=== PATIENT | female | born 1935 | race Caucasian/White ===

== ENCOUNTER 2018-06-10 12:24 | Inpatient (IN) | payer MEDICARE, OTHER ==
[~2018-06-10] VITALS: Ht 175.3 cm; Wt 47.6 kg
[2018-06-10] VITALS (9 sets, daily range): BP systolic 112–146; BP diastolic 45–87
[~2018-06-10 12:24] MED LIST: ASPI81TA31 PO; CELE200C PO; DOCU-270 PO; DULO60CA45 PO; ENAL10TA PO; ERGO500040 PO; FOLI1TAB16 PO; IBAN150T8 PO; METF-440 PO; METH2.5T PO; METO-356 PO; OXYB5TAB11 PO; PANT40TA2 PO; TRAM50TA2 PO
[2018-06-10] MEDS ORDERED: METHOTREXATE 2.5 MG (12:36)
[2018-06-10] MEDS ORDERED: ALENDRONATE 70 MG (12:36)
[2018-06-10] MEDS ORDERED: [UNRECOGNIZED DRUG - OTHER] (12:36)
[2018-06-10] MEDS ORDERED: MECLIZINE 25 MG (12:36)
[2018-06-10] MEDS ORDERED: CITALOPRAM 10 MG (12:36)
[2018-06-10] MEDS ORDERED: FUROSEMIDE TAB 20MG (12:36)
[2018-06-10] MEDS ORDERED: PRADAXA 150 MG (12:36)
[2018-06-10] MEDS ORDERED: AMITIZA 24 MCG (12:36)
[2018-06-10] MEDS ORDERED: [UNRECOGNIZED DRUG - OTHER] (12:36)
[2018-06-10] MEDS ORDERED: DONEPEZIL 5 MG (12:36)
[2018-06-10] MEDS ORDERED: MYRBETRIQ 25 MG (12:36)
[2018-06-10] MEDS ORDERED: METFORMIN TAB 500MG (12:36)
[2018-06-10] MEDS ORDERED: VOLTAREN GEL 1% (12:36)
[2018-06-10] MEDS ORDERED: ENALAPRIL 10 MG (12:36)
[2018-06-10] MEDS ORDERED: METOPROL SUC (12:36)
[2018-06-10] MEDS ORDERED: ROSUVASTATIN 20 MG (12:36)
[2018-06-10] MEDS ORDERED: LOSARTAN (12:37)
[2018-06-10] MEDS ORDERED: HCT (12:37)
[2018-06-10 12:45] LABS: BASOPHILS % (AUTO) 0.3 % (0.0-2.0); EOSINOPHILS # (AUTO) 0.1 K/uL (0.0-0.7); EOSINOPHILS % (AUTO) 0.4 % (0.0-7.0); HEMATOCRIT 47.6 % (31.2-41.9); LYMPHOCYTES # (AUTO) 1.2 K/uL (20.0-40.0); LYMPHOCYTES % (AUTO) 8.9 % (20.5-51.5); MEAN CORPUSCULAR HEMOGLOBIN 30.8 uug (24.7-32.8); MEAN CORPUSCULAR HGB CONC 34 g/dL (32.3-35.6); MEAN CORPUSCULAR VOLUME 91.8 fL (75.5-95.3); MONOCYTES # (AUTO) 1.1 K/uL (2.0-10.0); MONOCYTES % (AUTO) 8.1 % (0.0-11.0); NEUTROPHILS # (AUTO) 11.5 K/uL (1.8-8.9); NEUTROPHILS % (AUTO) 82.3 % (38.5-71.5); PLATELET COUNT (AUTO) 653 K/uL (179-408); RED BLOOD CELL COUNT(AUTO) 5.19 MIL/uL (3.63-4.92); WHITE BLOOD COUNT (AUTO) 13.9 K/uL (3.8-11.8)
[2018-06-10 12:58] LABS: CARBON DIOXIDE 24 mmol/L (21-32); CHLORIDE 104 mmol/L (98-107); CREATININE 0.7 mg/dL (0.6-1.3); GLUCOSE 229 mg/dL (74-106); UREA NITROGEN, BLOOD 18 mg/dL (7-18)
[2018-06-10] MEDS ORDERED: PRED2.5T PO (13:02)
[2018-06-10] MEDS ORDERED: LUBI24CA5 PO (13:02)
[2018-06-10] MEDS ORDERED: PRODAXA (13:02)
[2018-06-10] MEDS ORDERED: BLOO-140 IN (13:02)
[2018-06-10] MEDS ORDERED: FOLI1TAB16 PO (13:02)
[2018-06-10] MEDS ORDERED: ERGO2000 PO (13:02)
[2018-06-10] MEDS ORDERED: METF-440 PO (13:02)
[2018-06-10] MEDS ORDERED: DULO20CA PO (13:02)
[2018-06-10] MEDS ORDERED: DONE5TAB34 PO (13:02)
[2018-06-10] MEDS ORDERED: ROSU20TA PO (13:02)
[2018-06-10] MEDS ORDERED: MIRA25TA PO (13:02)
[2018-06-10] MEDS ORDERED: CITA10TA9 PO (13:02)
[2018-06-10 13:12] LABS: BILIRUBIN,DIRECT 0.3 mg/dL (0.0-0.2); BILIRUBIN,TOTAL 1.2 mg/dL (0.2-1.0); TOTAL PROTEIN, SERUM 6.6 g/dL (6.4-8.2)
[2018-06-10] MEDS ORDERED: MORPHINE SULFATE 4 MG/1 ML DISP.SYRIN IV ONE (13:30)
[2018-06-10] MEDS ORDERED: IV NORMAL SALINE 500 ML BAG IV ONE (13:30)
[2018-06-10] MEDS ORDERED: MORPHINE SULFATE 4 MG/1 ML DISP.SYRIN ONE (13:31)
[2018-06-10 13:50] LABS: *BILIRUBIN,URIN 1+ (NEGATIVE); *BLOOD, URINE Trace-intact (NEGATIVE); *CLARITY,URINE CLEAR (CLEAR); *COLOR,URINE YELLOW (YELLOW); *KETONES,URINE 1+ (NEGATIVE); *PROTEIN,URINE 2+ (NEGATIVE); LEUKOCYTE ESTERASE ,URINE NEGATIVE (NEGATIVE); NITRITE, URINE NEGATIVE (NEGATIVE); PH,URINE 5.5 (5.0-8.0); UGLUCOSE NEGATIVE (NEGATIVE)
[2018-06-10 13:56] LABS: BACTERIA,URINE FEW /HPF (NONE SEEN); RBC,URINE 0-3 /HPF (0-3); SQUAMOUS EPITHELIAL CELL,UR FEW /HPF (NONE SEEN); WBC,URINE 0-3 /HPF (0-3)
[2018-06-10 13:57] LABS: URINE AMORPHOUS URATE FEW /HPF
--- NOTE | 2018-06-10 13:57 | NUR ---
left a message for dr. rose/meera, and doctor giles for consult
--- NOTE | 2018-06-10 14:41 | NUR ---
SBAR report received from Chen SANCHEZ
--- NOTE | 2018-06-10 14:45 | NUR ---
transfered pt to ccu stable condition.
--- NOTE | 2018-06-10 15:00 | NUR ---
83 yr old female admitted to CCU#3 accompanied by iqra CHONG. with admitting diagnosis of pneumothorax and hemothorax left slung post mechanical fall, patient does not remember any syncopal episode. Addendum: 06/10/18 at 1538 by CATHY MARRERO RN Amended: Links added. Addendum: 06/10/18 at 1539 by CATHY MARRERO RN Amended: Links added. Addendum: 06/10/18 at 1540 by CATHY RUELO RN Amended: Links added.
[2018-06-10] MEDS ORDERED: MORPHINE SULFATE 2 MG/1 ML DISP.SYRIN IV PRN (15:30)
--- NOTE | 2018-06-10 15:39 | NUR ---
Seen and examined by Dr. Chavis. orders received. Addendum: 06/10/18 at 1539 by CATHY MARRERO RN Amended: Links added. Addendum: 06/10/18 at 1540 by CATHY MARRERO RN Amended: Links added.
--- NOTE | 2018-06-10 15:40 | NUR ---
call to SOO Khan for admission orders. Addendum: 06/10/18 at 1540 by CATHY MARRERO RN Amended: Links added.
[2018-06-10] MEDS ORDERED: MAGNESIUM HYDROXIDE 30 ML LIQUID UDC PO PRN (16:15)
[2018-06-10] MEDS ORDERED: ZOLPIDEM 5 MG TABLET PO PRN (16:15)
[2018-06-10] MEDS ORDERED: Z GUARD REMEDY PASTE 57 GM TUBE TOP PRN (16:15)
[2018-06-10] MEDS ORDERED: ONDANSETRON 4 MG/2 ML VIAL IV PRN (16:15)
[2018-06-10] MEDS ORDERED: DEXTROSE 50% 50 ML DISP.SYRIN IV PRN (16:30)
[2018-06-10] MEDS: IV NS 1000 ML 1,000 ML IV PRN (16:35)
[2018-06-10] MEDS: LIDOCAINE 5% PATCH TD SCH (16:36)
[2018-06-10] MEDS: BLOOD SUGAR DIAGNOSTIC 1 EACH STRIP VI SCH ×2 (16:55→20:42)
--- NOTE | 2018-06-10 16:58 | NUR ---
echocardiogram done at the bedside. IV fluid NS started at 75ml/hr via right arm IV site. lidocaine patch applied left side back. accucheck done bs 98, no insulin coverage needed. family in and out of room to visit Addendum: 06/10/18 at 1658 by CATHY MARRERO RN Amended: Links added. Addendum: 06/10/18 at 1722 by CATHY MARRERO RN Amended: Links added.
[2018-06-10] MEDS: CEFTRIAXONE 1 G in IV DEXTROSE 5% 50 ML IV SCH (17:01)
[2018-06-10] MEDS: MORPHINE SULFATE 4 MG/1 ML DISP.SYRIN IV PRN (17:16)
--- NOTE | 2018-06-10 17:22 | NUR ---
medicated for left letaral chest pain radiating to the back. unable to scale/ Addendum: 06/10/18 at 1722 by CATHY MARRERO RN Amended: Links added.
[2018-06-10] MEDS: ALBUTEROL SULFATE 2.5 MG/3 ML NEBU NEB SCH ×2 (19:35→23:22)
--- NOTE | 2018-06-10 20:00 | NUR ---
RECEIVED PT VERBALLY RESPONSIVE, FOLLOWS TO COMMAND BUT FORGETFULL ACCDG TO FAMILY, SPEAKS THAI, UNDERSTAND MINIMAL KINYARWANDA. ON O2 @ 100% NRM W/ O2 SAT OF 100%. ON IVF NS @ 75CC/HR ON RFA, NO SIGNS OF INFILTRATION. C/O PAIN ON L CHEST, BUT REFUSED MED. FOR PAIN THIS TIME. REPOSITIONED W/ HOB ELEVATED. C-SCOPE SR. BP STABLE.
[2018-06-10] MEDS: ATORVASTATIN 20 MG TABLET PO SCH (20:43)
--- NOTE | 2018-06-10 22:00 | NUR ---
HS CARE DONE. REPOSITIONED W/ HOB ELEVATED. NOT IN ANY RESP. DISTRESS.
[2018-06-11] VITALS (23 sets, daily range): BP systolic 108–141; BP diastolic 48–78
--- NOTE | 2018-06-11 | NUR ---
V/S STABLE. O2 SAT 100% ON 100% NRM.
[2018-06-11] MEDS: ALBUTEROL SULFATE 2.5 MG/3 ML NEBU NEB SCH ×6 (03:22→23:21)
[2018-06-11 04:59] LABS: BASOPHILS % (AUTO) 0.5 % (0.0-2.0); EOSINOPHILS # (AUTO) 0.2 K/uL (0.0-0.7); EOSINOPHILS % (AUTO) 1.9 % (0.0-7.0); HEMATOCRIT 41.9 % (31.2-41.9); HEMOGLOBIN 14.2 g/dL (10.9-14.3); LYMPHOCYTES # (AUTO) 1.7 K/uL (20.0-40.0); LYMPHOCYTES % (AUTO) 17.8 % (20.5-51.5); MEAN CORPUSCULAR HEMOGLOBIN 30.9 uug (24.7-32.8); MEAN CORPUSCULAR HGB CONC 34 g/dL (32.3-35.6); MEAN CORPUSCULAR VOLUME 91.2 fL (75.5-95.3); MONOCYTES # (AUTO) 1.1 K/uL (2.0-10.0); NEUTROPHILS # (AUTO) 6.7 K/uL (1.8-8.9); NEUTROPHILS % (AUTO) 68.8 % (38.5-71.5); PLATELET COUNT (AUTO) 527 K/uL (179-408); WHITE BLOOD COUNT (AUTO) 9.8 K/uL (3.8-11.8)
[2018-06-11 05:08] LABS: CARBON DIOXIDE 26 mmol/L (21-32); CHLORIDE 107 mmol/L (98-107); CHOLESTEROL 83 mg/dL (<200); CREATININE 0.8 mg/dL (0.6-1.3); GLUCOSE 104 mg/dL (74-106); HDL CHOLESTEROL 55 mg/dL (40-60); MAGNESIUM 1.5 mg/dL (1.8-2.4); PHOSPHOROUS 2.8 mg/dL (2.5-4.9); POTASSIUM 4.4 mmol/L (3.5-5.1); TRIGLYCERIDES 33 MG/DL (30-150); UREA NITROGEN, BLOOD 17 mg/dL (7-18)
--- NOTE | 2018-06-11 06:00 | NUR ---
REFUSED AM CARE C/O PAIN ON L CHEST
[2018-06-11] MEDS: MORPHINE SULFATE 4 MG/1 ML DISP.SYRIN IV PRN ×2 (06:33→18:48)
--- NOTE | 2018-06-11 06:33 | NUR ---
MEDICATED W/ MORPHINE 2MG IVP FOR L CHEST PAIN. BP STABLE, O2 SAT 100% ON 100 % NRM.
[2018-06-11] MEDS: IV NS 1000 ML 1,000 ML IV PRN (06:38)
[2018-06-11] MEDS: BLOOD SUGAR DIAGNOSTIC 1 EACH STRIP VI SCH ×4 (08:00→20:20)
[2018-06-11] MEDS: KETOROLAC TROMETHAMINE 15 MG INJ IVP PRN (08:04)
[2018-06-11] MEDS: CHOLECALCIFEROL 1,000 UNIT TABLET PO SCH (08:15)
[2018-06-11] MEDS: DULOXETINE 20 MG CAPSULE.DR PO SCH (08:16)
[2018-06-11] MEDS: CITALOPRAM 10 MG TABLET PO SCH (08:16)
[2018-06-11] MEDS: DONEPEZIL 5 MG TABLET PO SCH (08:16)
[2018-06-11] MEDS: FOLIC ACID 1 MG TABLET PO SCH (08:16)
[2018-06-11] MEDS: predniSONE 5 MG TABLET PO SCH (08:16)
[2018-06-11] MEDS ORDERED: predniSONE 2.5 MG TABLET PO SCH (09:00)
[2018-06-11] MEDS: LIDOCAINE 5% PATCH TD SCH (09:05)
--- NOTE | 2018-06-11 09:20 | NUR ---
Pulmonary services in the unit to see and examine pt. full report given orders received. see order hx.
[2018-06-11] MEDS: MAGNESIUM SULFATE/D5W 100 ML IV SCH ×2 (10:01→11:34)
--- NOTE | 2018-06-11 11:45 | NUR ---
Attending Reed Hernandez in the unit to see and examine pt. report given.
[2018-06-11] MEDS: INSULIN REGULAR, HUMAN 300 UNIT/3 ML VIAL SQ PRN ×2 (11:47→18:50)
--- NOTE | 2018-06-11 15:30 | NUR ---
Cardiology services Dr. Gauthier in the unit to see and examine pt. report given, orders received see, see order hx.
[2018-06-11] MEDS ORDERED: IV NORMAL SALINE 250 ML IV ONE (16:51)
[2018-06-11] MEDS ORDERED: NORMAL SALINE FLUSH 10 ML DISP.SYRIN ONE ×2 (16:51→16:52)
[2018-06-11] MEDS ORDERED: IOHEXOL 350 100 ML INFUS..BTL ONE (16:51)
[2018-06-11] MEDS ORDERED: CELLULOSE,OXIDIZED 2x3 MC ONE (16:51)
[2018-06-11] MEDS: CEFTRIAXONE 1 G in IV DEXTROSE 5% 50 ML IV SCH (18:43)
--- NOTE | 2018-06-11 20:00 | NUR ---
RECEIVED PT. CONFUSED & DISORIENTED SON @ BEDSIDE, DENIES PAIN @ THIS TIME. ON O2 @ 4LNC W/ O2 SAT OF 96%. REPOSITIONED IN BED W/ HOB ELEVATED. IVF NS @ 75 CC/HR ON RFA., NO SIGNS OF INFILTRATION. NOT IN ANY RESP. DISTRESS.
[2018-06-11] MEDS: ATORVASTATIN 20 MG TABLET PO SCH (20:20)
--- NOTE | 2018-06-11 22:00 | NUR ---
HS CARE DONE. REPOSITIONED W/ HOB ELEVATED. SON @ BEDSIDE. PT. REMAINS CONFUSED & DISORIENTED.
[2018-06-12] VITALS (15 sets, daily range): BP systolic 101–139; BP diastolic 57–79
--- NOTE | 2018-06-12 | NUR ---
AFEBRILE. BP STABLE. REMAINS AWAKE, CONFUSED & DISORIENTED.
[2018-06-12] MEDS: IV NS 1000 ML 1,000 ML IV PRN ×2 (00:57→22:45)
[2018-06-12] MEDS: ACETAMINOPHEN 325 MG TABLET PO PRN ×2 (03:17→22:44)
--- NOTE | 2018-06-12 03:17 | NUR ---
MEDICATED W/ TYLENOL 650 MG PO FOR DISCOMFORTS. PARTIAL AM CARE AFTER USING THE BEDPAN.
[2018-06-12] MEDS: ALBUTEROL SULFATE 2.5 MG/3 ML NEBU NEB SCH ×6 (03:43→22:30)
--- NOTE | 2018-06-12 04:30 | NUR ---
SLEEPING @ THIS TIME, PLACED ON O2 @ 6L MASK.
[2018-06-12 06:43] LABS: BASOPHILS % (AUTO) 0.6 % (0.0-2.0); EOSINOPHILS # (AUTO) 0.2 K/uL (0.0-0.7); EOSINOPHILS % (AUTO) 2.1 % (0.0-7.0); HEMATOCRIT 40.4 % (31.2-41.9); HEMOGLOBIN 13.9 g/dL (10.9-14.3); LYMPHOCYTES # (AUTO) 1.2 K/uL (20.0-40.0); LYMPHOCYTES % (AUTO) 13.6 % (20.5-51.5); MEAN CORPUSCULAR HEMOGLOBIN 31.7 uug (24.7-32.8); MEAN CORPUSCULAR HGB CONC 34 g/dL (32.3-35.6); MEAN CORPUSCULAR VOLUME 92.2 fL (75.5-95.3); MONOCYTES # (AUTO) 0.7 K/uL (2.0-10.0); MONOCYTES % (AUTO) 8.3 % (0.0-11.0); NEUTROPHILS # (AUTO) 6.6 K/uL (1.8-8.9); NEUTROPHILS % (AUTO) 75.4 % (38.5-71.5); PLATELET COUNT (AUTO) 522 K/uL (179-408); RED BLOOD CELL COUNT(AUTO) 4.38 MIL/uL (3.63-4.92); WHITE BLOOD COUNT (AUTO) 8.8 K/uL (3.8-11.8)
[2018-06-12 07:00] LABS: CARBON DIOXIDE 25 mmol/L (21-32); CHLORIDE 109 mmol/L (98-107); CREATININE 0.6 mg/dL (0.6-1.3); GLUCOSE 130 mg/dL (74-106); MAGNESIUM 1.9 mg/dL (1.8-2.4); PHOSPHOROUS 2.2 mg/dL (2.5-4.9); POTASSIUM 4.4 mmol/L (3.5-5.1); UREA NITROGEN, BLOOD 16 mg/dL (7-18)
--- NOTE | 2018-06-12 07:23 | NUR ---
Upon receiving assessment patient noted, to be restless agitated combative attempting to get out of bed unsupervised. 1:1 sitter at bedside, but pt. turning really restless and as per report pt. only able to sleep a couple of hours.
[2018-06-12] MEDS: BLOOD SUGAR DIAGNOSTIC 1 EACH STRIP VI SCH ×4 (07:53→21:00)
[2018-06-12] MEDS: INSULIN REGULAR, HUMAN 300 UNIT/3 ML VIAL SQ PRN ×3 (07:56→16:44)
[2018-06-12] MEDS: predniSONE 5 MG TABLET PO SCH (08:07)
[2018-06-12] MEDS: FOLIC ACID 1 MG TABLET PO SCH (08:07)
[2018-06-12] MEDS: DULOXETINE 20 MG CAPSULE.DR PO SCH (08:07)
[2018-06-12] MEDS: LIDOCAINE 5% PATCH TD SCH (08:07)
[2018-06-12] MEDS: DONEPEZIL 5 MG TABLET PO SCH (08:07)
[2018-06-12] MEDS: CITALOPRAM 10 MG TABLET PO SCH (08:08)
[2018-06-12] MEDS: CHOLECALCIFEROL 1,000 UNIT TABLET PO SCH (08:09)
--- NOTE | 2018-06-12 08:30 | NUR ---
Patient remains restless agitated, pt's son called and now at bedside.
--- NOTE | 2018-06-12 09:20 | NUR ---
Farm Planner Dr. Chavis in the unit to examine patient, full report given.
--- NOTE | 2018-06-12 10:15 | NUR ---
As requested per son Jarred who remains at bedside patient taken out for a short walk. Patient did not tolerate activity, turning diaphoretic, cold clammy and saturation drop to the mid-70's. Attending N.P. notified. Orders received and carried.
[2018-06-12] MEDS ORDERED: QUETIAPINE FUMARATE 25 MG TABLET PO PRN (11:00)
--- NOTE | 2018-06-12 12:00 | NUR ---
telephone report given to Wilner homer and patient taken to room 211 down graded to ICU
[2018-06-12] MEDS: MORPHINE SULFATE 4 MG/1 ML DISP.SYRIN IV PRN (13:38)
--- NOTE | 2018-06-12 13:41 | NUR ---
The patient refused the chest and mediastinum ultrasound. LAURA Eden noted.
[2018-06-12] MEDS ORDERED: NEUTRA PHOS PACKET PO ONE (15:15)
[2018-06-12] MEDS: CEFTRIAXONE 1 G in IV DEXTROSE 5% 50 ML IV SCH (16:41)
[2018-06-12] MEDS: KETOROLAC TROMETHAMINE 15 MG INJ IVP PRN (17:38)
--- NOTE | 2018-06-12 19:30 | NUR ---
NOTED PT TO BE A/A/ O TIMES 2.FAMILY AT BS NO DISTRESS NOTED,
[2018-06-12] MEDS ORDERED: QUETIAPINE FUMARATE 25 MG TABLET PO SCH (21:00)
[2018-06-12] MEDS: ATORVASTATIN 20 MG TABLET PO SCH (21:17)
[2018-06-13] VITALS: BP 122/66
[2018-06-13] MEDS: KETOROLAC TROMETHAMINE 15 MG INJ IVP PRN ×2 (00:26→14:28)
[2018-06-13] MEDS: ALBUTEROL SULFATE 2.5 MG/3 ML NEBU NEB SCH ×6 (03:12→23:22)
[2018-06-13 04:00] VITALS: BP 125/66
[2018-06-13 06:33] LABS: CARBON DIOXIDE 27 mmol/L (21-32); CHLORIDE 112 mmol/L (98-107); CREATININE 0.7 mg/dL (0.6-1.3); GLUCOSE 117 mg/dL (74-106); MAGNESIUM 1.8 mg/dL (1.8-2.4); PHOSPHOROUS 2.9 mg/dL (2.5-4.9); POTASSIUM 5.1 mmol/L (3.5-5.1); UREA NITROGEN, BLOOD 16 mg/dL (7-18)
--- NOTE | 2018-06-13 07:00 | NUR ---
HAD UNEVENTFUL NIGHT.SLEPT MOST OF THE NIGHT
[2018-06-13 07:36] LABS: BASOPHILS # (AUTO) 0.1 K/uL (0.0-8.0); EOSINOPHILS # (AUTO) 0.3 K/uL (0.0-0.7); EOSINOPHILS % (AUTO) 3.3 % (0.0-7.0); HEMATOCRIT 39.2 % (31.2-41.9); HEMOGLOBIN 13.4 g/dL (10.9-14.3); LYMPHOCYTES # (AUTO) 2.5 K/uL (20.0-40.0); LYMPHOCYTES % (AUTO) 32.3 % (20.5-51.5); MEAN CORPUSCULAR HEMOGLOBIN 31.5 uug (24.7-32.8); MEAN CORPUSCULAR HGB CONC 34 g/dL (32.3-35.6); MEAN CORPUSCULAR VOLUME 92.2 fL (75.5-95.3); MONOCYTES # (AUTO) 0.7 K/uL (2.0-10.0); MONOCYTES % (AUTO) 8.6 % (0.0-11.0); NEUTROPHILS # (AUTO) 4.3 K/uL (1.8-8.9); NEUTROPHILS % (AUTO) 54.8 % (38.5-71.5); PLATELET COUNT (AUTO) 506 K/uL (179-408); RED BLOOD CELL COUNT(AUTO) 4.25 MIL/uL (3.63-4.92); WHITE BLOOD COUNT (AUTO) 7.8 K/uL (3.8-11.8)
[2018-06-13] MEDS: BLOOD SUGAR DIAGNOSTIC 1 EACH STRIP VI SCH ×4 (07:39→20:31)
[2018-06-13 08:00] VITALS: BP 138/77
--- NOTE | 2018-06-13 08:00 | NUR ---
Plan of care re: fall precaution, pain management, keep o2 sat above 90's. Applied pillow on left side to see it pt's pain will decrease (left rib fx). 1:1 sitter at bedside for safety. Call light is within reach. Stopped IVF secondary to pt sounds congested will notify TRACK BROOM OPERATOR.
[2018-06-13] MEDS: MORPHINE SULFATE 4 MG/1 ML DISP.SYRIN IV PRN (08:33)
[2018-06-13] MEDS: CHOLECALCIFEROL 1,000 UNIT TABLET PO SCH (08:34)
[2018-06-13] MEDS: DULOXETINE 20 MG CAPSULE.DR PO SCH (08:34)
[2018-06-13] MEDS: predniSONE 5 MG TABLET PO SCH (08:34)
[2018-06-13] MEDS: LIDOCAINE 5% PATCH TD SCH (08:34)
[2018-06-13] MEDS: CITALOPRAM 10 MG TABLET PO SCH (08:34)
[2018-06-13] MEDS: DONEPEZIL 5 MG TABLET PO SCH (08:34)
[2018-06-13] MEDS: FOLIC ACID 1 MG TABLET PO SCH (08:34)
[2018-06-13] MEDS ORDERED: FUROSEMIDE 20 MG/2 ML VIAL IV ONE ×2 (09:30→17:00)
[2018-06-13] MEDS: INSULIN REGULAR, HUMAN 300 UNIT/3 ML VIAL SQ PRN ×2 (11:56→16:43)
[2018-06-13 12:00] VITALS: BP 111/64
[2018-06-13] MEDS ORDERED: QUETIAPINE FUMARATE 25 MG TABLET PO PRN (14:00)
[2018-06-13 16:08] VITALS: BP 131/62
--- NOTE | 2018-06-13 18:00 | NUR ---
Plan of care effective. Pt comfortable. Applied ice on and off on pt left side. no fall noted this shift. Pt had total output of 1350 cc urine - lasix effective. Pt lung sounds less congested. Call light is within reach.
[2018-06-13 19:00] VITALS: BP 128/69
--- NOTE | 2018-06-13 19:45 | NUR ---
RECEIVED PT'S A/A/O X2-3 W/ HER SON AT THE BEDSIDE.PT DENIED OF PAIN OR ANY DISCOMFORT.ON O2 NC 4LPM W/HUMIDIFIER.UPDATED THE PLAN OF CARE TO PT AND TRANSLATED BY HER SON(ARLETTE);SHE VERBALIZED UNDERSTANDING AND COOPERATIVE.NO SOB NOTED.EDUCATED TO PT AND HER SON,I'LL GIVE TYLENOL BEFORE BED TO PT;THEY VERBALIZED UNDERSTANDING AND COOPERATIVE.TELEMETRY'S SR 80/MIN NOTED.
[2018-06-13] MEDS: ACETAMINOPHEN 325 MG TABLET PO PRN (20:19)
[2018-06-13] MEDS: ATORVASTATIN 20 MG TABLET PO SCH (20:19)
[2018-06-13] MEDS: CEPHALEXIN MONOHYDRATE 500 MG CAPSULE PO SCH (20:19)
--- NOTE | 2018-06-13 20:45 | NUR ---
ASSISTED PT FOR PM CARE.BED BROOKE'S GIVEN FOR URINATION IN ORDER TO GET ACCURATE I/O NOTED.1:1 SITTER AT THE BEDSIDE FOR SAFETY NOTED.KEPT COMFORT.SAFETY RENDER NOTED.
--- NOTE | 2018-06-13 21:25 | NUR ---
PT'S ANXIOUS,KEPT PUTTING HER FINGER TO CELLPHONE FOR MANY TIMES;DAYA TOLBERT STATED THAT SHE'D BEEN DOING LIKE THIS FOR 15 MINUTES;SEROQUEL 25 MG PO X1 WAS GIVEN TO PT;ASSISTED TO REPOSITION.CLOSELY MONITORING TO PT.
[2018-06-14] VITALS: BP 112/65
--- NOTE | 2018-06-14 | NUR ---
PT'S COMFORTABLE ON BED,UNLABORED BREATHING NOTED.SAFETY RENDER.CONTINUED MONITORING TO PT.1:1 SITTER AT THE BEDSIDE.TELEMETRY'S SR 82/MIN.
[2018-06-14] MEDS: ALBUTEROL SULFATE 2.5 MG/3 ML NEBU NEB SCH ×6 (03:02→22:32)
[2018-06-14 04:00] VITALS: BP 136/68
--- NOTE | 2018-06-14 06:00 | NUR ---
PT SLEPT WELL DURING OF THE NIGHT,DENIED OF PAIN AT THIS TIME.PT USED BEDPAN FOR URINATION;GOT GOOD AMOUNT OF URINE OUTPUT NOTED.NO SOB WAS SEEN,PT STILL HAD O2 NC 4LPM W/HUMIDIFIER,O2 SAT'S 93-94% WHILE SLEEPING BUT WHEN SHE'S AWAKE AND DEEP BREATHING GOT O2 SAT ~99-100%.MAINTAINED SAFETY,1:1 SITTER AT THE BEDSIDE @ ALL TIMES NOTED.
[2018-06-14] MEDS: BLOOD SUGAR DIAGNOSTIC 1 EACH STRIP VI SCH ×4 (06:37→20:07)
[2018-06-14 06:41] LABS: CARBON DIOXIDE 27 mmol/L (21-32); CHLORIDE 110 mmol/L (98-107); CREATININE 0.7 mg/dL (0.6-1.3); GLUCOSE 108 mg/dL (74-106); MAGNESIUM 1.7 mg/dL (1.8-2.4); PHOSPHOROUS 3.7 mg/dL (2.5-4.9); POTASSIUM 4.1 mmol/L (3.5-5.1); UREA NITROGEN, BLOOD 19 mg/dL (7-18)
[2018-06-14 06:57] LABS: BASOPHILS # (AUTO) 0.1 K/uL (0.0-8.0); EOSINOPHILS # (AUTO) 0.3 K/uL (0.0-0.7); EOSINOPHILS % (AUTO) 3.4 % (0.0-7.0); HEMATOCRIT 41.9 % (31.2-41.9); LYMPHOCYTES # (AUTO) 2.6 K/uL (20.0-40.0); LYMPHOCYTES % (AUTO) 30.7 % (20.5-51.5); MEAN CORPUSCULAR HEMOGLOBIN 30.8 uug (24.7-32.8); MEAN CORPUSCULAR HGB CONC 34 g/dL (32.3-35.6); MEAN CORPUSCULAR VOLUME 91.8 fL (75.5-95.3); MONOCYTES # (AUTO) 0.6 K/uL (2.0-10.0); MONOCYTES % (AUTO) 7.4 % (0.0-11.0); NEUTROPHILS # (AUTO) 4.9 K/uL (1.8-8.9); NEUTROPHILS % (AUTO) 57.5 % (38.5-71.5); PLATELET COUNT (AUTO) 539 K/uL (179-408); RED BLOOD CELL COUNT(AUTO) 4.56 MIL/uL (3.63-4.92); WHITE BLOOD COUNT (AUTO) 8.6 K/uL (3.8-11.8)
--- NOTE | 2018-06-14 07:30 | NUR ---
RECEIVED PATIENT IN BED AWAKE ALERT HAS A ONE ON ONE SITTER FOR SAFETY WITH O2 WITH NO SHORTNESS OF BREATH AT THIS TIME NO S/S OF HYPO/HYPERGLYCEMIC REACTIONS AT THIS TIME PATIENT MADE COMFORTABLE AN WILL CONTINUE TO OBSERVE.
[2018-06-14 08:00] VITALS: BP 146/78
[2018-06-14] MEDS: predniSONE 5 MG TABLET PO SCH (08:11)
[2018-06-14] MEDS: CHOLECALCIFEROL 1,000 UNIT TABLET PO SCH (08:11)
[2018-06-14] MEDS: CEPHALEXIN MONOHYDRATE 500 MG CAPSULE PO SCH ×2 (08:11→20:07)
[2018-06-14] MEDS: FOLIC ACID 1 MG TABLET PO SCH (08:12)
[2018-06-14] MEDS: LIDOCAINE 5% PATCH TD SCH (08:12)
[2018-06-14] MEDS: CITALOPRAM 10 MG TABLET PO SCH (08:12)
[2018-06-14] MEDS: DONEPEZIL 5 MG TABLET PO SCH (08:12)
[2018-06-14] MEDS: DULOXETINE 20 MG CAPSULE.DR PO SCH (08:12)
[2018-06-14] MEDS: KETOROLAC TROMETHAMINE 15 MG INJ IVP PRN ×2 (09:46→20:08)
--- NOTE | 2018-06-14 09:46 | NUR ---
PATIENT IS COMPLAINING OF PAIN ON THE LEFT SIDE OF HER FLANK MEDICATED WITH TORADOL ORDERED MADE COMFORTABLE AND WILL CONTINUE TO OBSERVE.
--- NOTE | 2018-06-14 11:00 | NUR ---
DR MENDOZA HERE TO SEE PATIENT EEG COMPLETED ORDERED. NO NEW ORDERS AT THIS TIME.
[2018-06-14 11:10] VITALS: BP 147/77
--- NOTE | 2018-06-14 11:30 | NUR ---
pt not avail at this time. EEG in progress
[2018-06-14] MEDS: INSULIN REGULAR, HUMAN 300 UNIT/3 ML VIAL SQ PRN ×2 (12:12→16:35)
[2018-06-14 15:45] VITALS: BP 147/77
[2018-06-14] MEDS ORDERED: MAGNESIUM OXIDE 400 MG TABLET PO ONE (17:00)
--- NOTE | 2018-06-14 17:00 | NUR ---
SON AT THE BEDSIDE PATIENT SEEN BY DR SHABAZZ WITH ORDER TO DISCONTINUE TELEMETRY AND NOTED MD SPOKE WITH THE PATIENTS SON AT LENGTH RE PLAN OF CARE.
--- NOTE | 2018-06-14 18:32 | NUR ---
MAGNESSIUM LEVEL IS 1.7 DR FUENTES NOTIFIED WITH NEW REPLACEMENT ORDERS AND NOTED.WILL CONTINUE TO OBSERVE.
[2018-06-14 19:30] VITALS: BP 126/71
--- NOTE | 2018-06-14 19:30 | NUR ---
Received patient from day shift nurse in stable condition. No acute distress noted. Vital signs are in range. Patient is A/Ox4, Tamazight/Bhutanese speaking, & able to make most needs known. Pertinent assessment completed at start of shift. Patient complaining of left rib pain. Will medicate per MD order & reassess pain level. Noted with right hand 22G IV site which is patent, flushing well, & locked. On ATB therapy. On oxygen via NC at 4LPM. No signs of SOB noted. 1:1 sitter at the bedside for safety. Will continue to monitor through shift.
[2018-06-14] MEDS: ATORVASTATIN 20 MG TABLET PO SCH (20:08)
[2018-06-15] MEDS: ALBUTEROL SULFATE 2.5 MG/3 ML NEBU NEB SCH ×6 (03:04→23:33)
[2018-06-15 04:00] VITALS: BP 138/75
[2018-06-15] MEDS: KETOROLAC TROMETHAMINE 15 MG INJ IVP PRN (06:18)
[2018-06-15 06:22] LABS: BASOPHILS # (AUTO) 0.1 K/uL (0.0-8.0); EOSINOPHILS # (AUTO) 0.3 K/uL (0.0-0.7); EOSINOPHILS % (AUTO) 3.3 % (0.0-7.0); HEMATOCRIT 40.9 % (31.2-41.9); HEMOGLOBIN 14.1 g/dL (10.9-14.3); LYMPHOCYTES # (AUTO) 2.4 K/uL (20.0-40.0); LYMPHOCYTES % (AUTO) 25.4 % (20.5-51.5); MEAN CORPUSCULAR HEMOGLOBIN 30.8 uug (24.7-32.8); MEAN CORPUSCULAR HGB CONC 34 g/dL (32.3-35.6); MEAN CORPUSCULAR VOLUME 89.7 fL (75.5-95.3); MONOCYTES # (AUTO) 0.7 K/uL (2.0-10.0); MONOCYTES % (AUTO) 7.7 % (0.0-11.0); NEUTROPHILS # (AUTO) 5.8 K/uL (1.8-8.9); NEUTROPHILS % (AUTO) 62.6 % (38.5-71.5); PLATELET COUNT (AUTO) 582 K/uL (179-408); RED BLOOD CELL COUNT(AUTO) 4.56 MIL/uL (3.63-4.92); WHITE BLOOD COUNT (AUTO) 9.3 K/uL (3.8-11.8)
[2018-06-15] MEDS: BLOOD SUGAR DIAGNOSTIC 1 EACH STRIP VI SCH ×4 (06:38→20:17)
--- NOTE | 2018-06-15 06:46 | NUR ---
Patient's blood sugar this AM at 136. Will endorse to day shift nurse to cover patient with breakfast tray. Patient remained stable through shift. 1:1 sitter at the bedside for safety. All needs attended to. Medications administered per MD order. Pain management provided. No SOB noted during shift. Incentive spirometer at the bedside. Safety & comfort measures implemented. Will endorse to oncoming shift.
--- NOTE | 2018-06-15 07:03 | NUR ---
Critical lab value for Trop at 0.293. Paged conservation assistant Fernando Tapia. Awaiting call back from MD. Will endorse to day shift nurse & wait for MD to call back.
[2018-06-15 07:04] LABS: THYROID STIMULATING HORMONE 2.578 mIU/mL (0.358-3.740)
--- NOTE | 2018-06-15 07:05 | NUR ---
Dr. King responded regarding critical lab value for trop. NNO per . Will endorse to day shift nurse.
[2018-06-15 07:13] LABS: ALANINE AMINOTRANSFERASE 50 U/L (14-59); ALKALINE PHOSPHATASE 54 U/L (50-136); ASPARTATE AMINOTRANSFERASE 26 U/L (15-37); BILIRUBIN,TOTAL 0.9 mg/dL (0.2-1.0); CARBON DIOXIDE 26 mmol/L (21-32); CHLORIDE 105 mmol/L (98-107); CREATININE 0.7 mg/dL (0.6-1.3); GLUCOSE 129 mg/dL (74-106); MAGNESIUM 1.7 mg/dL (1.8-2.4); PHOSPHOROUS 3.3 mg/dL (2.5-4.9); POTASSIUM 4.1 mmol/L (3.5-5.1); TOTAL PROTEIN, SERUM 5.7 g/dL (6.4-8.2); UREA NITROGEN, BLOOD 20 mg/dL (7-18)
--- NOTE | 2018-06-15 07:30 | NUR ---
Received pt awake, alert and oriented. No immediate s/sx of SOB or distress. Pt stated per INFERTILITY MEDICAL ASSISTANT that pt has pain, night RN stated that Toradol was given at 0618, verified and explained to the patient that the pain medication was given to her earlier
[2018-06-15 08:00] VITALS: BP 141/89
[2018-06-15] MEDS: LIDOCAINE 5% PATCH TD SCH (09:15)
[2018-06-15] MEDS: CHOLECALCIFEROL 1,000 UNIT TABLET PO SCH (09:16)
[2018-06-15] MEDS: predniSONE 5 MG TABLET PO SCH (09:16)
[2018-06-15] MEDS: CITALOPRAM 10 MG TABLET PO SCH (09:16)
[2018-06-15] MEDS: DONEPEZIL 5 MG TABLET PO SCH (09:16)
[2018-06-15] MEDS: CEPHALEXIN MONOHYDRATE 500 MG CAPSULE PO SCH ×2 (09:16→20:09)
[2018-06-15] MEDS: DULOXETINE 20 MG CAPSULE.DR PO SCH (09:16)
[2018-06-15] MEDS: FOLIC ACID 1 MG TABLET PO SCH (09:16)
--- NOTE | 2018-06-15 09:30 | NUR ---
Pt was compliant with medications and nursing care
--- NOTE | 2018-06-15 10:00 | NUR ---
Efren Jarred spoke with endless track vehicle supervisor regarding the patient going back to her private room with a sitter instead of being in a semi-private room
[2018-06-15 11:30] VITALS: BP 140/80
--- NOTE | 2018-06-15 11:30 | NUR ---
received hand off report from Gwen SANCHEZ
[2018-06-15] MEDS: MAGNESIUM SULFATE/D5W 100 ML IV SCH ×2 (12:12→13:51)
[2018-06-15 15:30] VITALS: BP 134/78
[2018-06-15] MEDS: INSULIN REGULAR, HUMAN 300 UNIT/3 ML VIAL SQ PRN (17:32)
--- NOTE | 2018-06-15 18:48 | NUR ---
pATIENT IN ROOM RESTING. 1:1 SITTER AT BEDSIDE FOR SAFETY. STILL ON O2 @ 4LPM VIA NC WELL TOLERATED. BLOOD GLUCOSE 218 4 UNITS OF INSULIN GIVEN. ALL NEEDS ATTENDED AND ANTICIPATED. CALL LIGHT WITHIN REACH.
--- NOTE | 2018-06-15 19:10 | NUR ---
RECEIVED PT AWAKE ON BED, NO COMPLAINTS OF DISCOMFORT AT THIS TIME. ON 1:1 SITTER AT BEDSIDE FOR SAFETY. ON O2 AT 4L TOLERATED WELL. SAFETY MEASURES INITIATED, CALL GARCÍA WITHIN REACH.
[2018-06-15 19:18] VITALS: BP 137/71
[2018-06-15] MEDS: ATORVASTATIN 20 MG TABLET PO SCH (20:09)
--- NOTE | 2018-06-15 20:17 | NUR ---
PT ACCUCHECK SHOWS 66MG/DL. PT ALERT, NO COMPLAINTS OF DIZZINESS OR SWEATING. APPLE SAUCE AND 1 CUP OF APPLE JUICE GIVEN. WILL CONTINUE TO MONITOR.
--- NOTE | 2018-06-15 20:59 | NUR ---
REASSESSED GLUCOSE LEVEL, ACCUCHECK SHOWS 116MG/DL. NO SIGNS OF DISTRESS NOTED AT THIS TIME.
[2018-06-15] MEDS: ACETAMINOPHEN 325 MG TABLET PO PRN (22:10)
[2018-06-16] MEDS: ALBUTEROL SULFATE 2.5 MG/3 ML NEBU NEB SCH ×4 (02:35→15:27)
[2018-06-16 05:46] VITALS: BP 129/64
--- NOTE | 2018-06-16 06:46 | NUR ---
PT SLEPT THROUGHOUT THE SHIFT. ON 1:1 SITTER AT BEDSIDE FOR SAFETY. NO SIGNS OF ACUTE DISTRESS NOTED AT THIS TIME. IV SITE ON R HAND, PATENT AND INTACT. PT COMPLIANT WITH CARE. ALL NEEDS ATTENDED AND MET. SAFE ENVIRONMENT MAINTAINED AT ALL TIMES.
[2018-06-16] MEDS: CITALOPRAM 10 MG TABLET PO SCH (08:00)
[2018-06-16] MEDS: LIDOCAINE 5% PATCH TD SCH (08:00)
[2018-06-16] MEDS: DULOXETINE 20 MG CAPSULE.DR PO SCH (08:00)
[2018-06-16] MEDS: FOLIC ACID 1 MG TABLET PO SCH (08:00)
[2018-06-16] MEDS: CHOLECALCIFEROL 1,000 UNIT TABLET PO SCH (08:00)
[2018-06-16] MEDS: predniSONE 5 MG TABLET PO SCH (08:00)
[2018-06-16] MEDS: DONEPEZIL 5 MG TABLET PO SCH (08:00)
[2018-06-16] MEDS: CEPHALEXIN MONOHYDRATE 500 MG CAPSULE PO SCH (08:01)
[2018-06-16 10:41] VITALS: BP 137/73
[2018-06-16] MEDS ORDERED: QUET25TA PO (15:44)
[2018-06-16] MEDS ORDERED: LIDO30AD10 TD (15:44)
[2018-06-16] MEDS ORDERED: ACET325T53 PO (15:44)
[2018-06-16] MEDS ORDERED: ALBU2.5V38 NEB (15:44)
[2018-06-16] MEDS ORDERED: MENT71OI TOP (15:44)
[2018-06-16] MEDS ORDERED: DOCU-141 PO (15:44)
[2018-06-16] MEDS ORDERED: MAGN400O6 PO (15:44)
[2018-06-16] MEDS ORDERED: ATOR10TA PO (15:44)
[2018-06-16] MEDS ORDERED: PRED-170 PO (15:44)
[2018-06-16] MEDS ORDERED: HYDR-3326 PO (15:44)
[2018-06-16] MEDS ORDERED: CHOL10002 PO (15:44)
[2018-06-16] MEDS ORDERED: ZOLP5TAB8 PO (15:44)
[2018-06-16 16:00] VITALS: BP 139/67
--- NOTE | 2018-06-16 16:41 | NUR ---
d/c orders received noted and carried out.d/c instruction and rn report given to the rn over rehab pt left the facility to rehab via wheel chair in stable condition with i/v heplock
[2018-06-16] MEDS ORDERED: ATORVASTATIN 10 MG TABLET PO SCH (21:00)
== END 2018-06-16 16:30 | DRG 199 ==
LOC: ER 12:24 → CCU 14:44 → TELE 06-12 12:06 → TELE-TD 06-12 12:09 → TELE 06-13 14:14 → MED 06-14 13:00
PROVIDERS: ADMIT Nurse Practitioner Acute Care; ATTEND Nurse Practitioner Acute Care
DX: S27.2XXA Traumatic hemopneumothorax, initial encounter (principal); I50.31 Acute diastolic (congestive) heart failure; J96.01 Acute respiratory failure with hypoxia; I21.A1 Myocardial infarction type 2; S22.42XA Multiple fractures of ribs, left side, initial encounter for closed fracture; E44.1 Mild protein-calorie malnutrition; Z68.1 Body mass index [BMI] 19.9 or less, adult; J98.11 Atelectasis; W19.XXXA Unspecified fall, initial encounter; Y92.039 Unspecified place in apartment as the place of occurrence of the external cause; M06.9 Rheumatoid arthritis, unspecified; Z79.84 Long term (current) use of oral hypoglycemic drugs; Z86.73 Personal history of transient ischemic attack (TIA), and cerebral infarction without residual deficits; Z79.01 Long term (current) use of anticoagulants; E11.9 Type 2 diabetes mellitus without complications; F01.50 Vascular dementia, unspecified severity, without behavioral disturbance, psychotic disturbance, mood disturbance, and anxiety; I11.0 Hypertensive heart disease with heart failure; R91.8 Other nonspecific abnormal finding of lung field; M85.80 Other specified disorders of bone density and structure, unspecified site; G93.89 Other specified disorders of brain; F32.9 Major depressive disorder, single episode, unspecified; E78.5 Hyperlipidemia, unspecified; R55 Syncope and collapse; N20.0 Calculus of kidney; K80.20 Calculus of gallbladder without cholecystitis without obstruction; I45.10 Unspecified right bundle-branch block; M12.88 Other specific arthropathies, not elsewhere classified, other specified site
CPT/HCPCS: 36415; 70030-TC; 70450; 71045; 71250; 71275; 72125; 76604; 83735; 84100; 84443; 85025; 85730; 87040; 87086; 92610; 93005; 93307; 93880; 94640; 95819; A4663; C1758; J0696; J1815; J1885; J1940; J2270; J3475; J3490; J7030; J7040; J7050; J7060; J7512; Q9967

== ENCOUNTER 2018-06-16 17:09 | Inpatient (IN) | payer MEDICARE, OTHER ==
[~2018-06-16] VITALS: Ht 175.3 cm; Wt 47.6 kg
--- NOTE | 2018-06-16 17:00 | NUR ---
BROUGHT DOWN FROM MED SURG WITH FAMILY MEMBERS ALONG SIDE. ORIENTED TO ROOM AND SURROUNDINGS. VS 142/79/84/18. 93% SAT ON 2LI
[~2018-06-16 17:09] MED LIST changes: +ACET325T53 PO; +ALBU2.5V38 NEB; -ASPI81TA31 PO; +ATOR10TA PO; +BLOO-140 IN; -CELE200C PO; +CHOL10002 PO; +CITA10TA9 PO; +DOCU-141 PO; -DOCU-270 PO; +DONE5TAB34 PO; +DULO20CA PO; -DULO60CA45 PO; -ENAL10TA PO; +ERGO2000 PO; -ERGO500040 PO; +HYDR-3326 PO; -IBAN150T8 PO; +LIDO30AD10 TD; +LUBI24CA5 PO; +MAGN400O6 PO; +MENT71OI TOP; -METH2.5T PO; -METO-356 PO; +MIRA25TA PO; -OXYB5TAB11 PO; -PANT40TA2 PO; +PRED-170 PO; +PRED2.5T PO; +PRODAXA; +QUET25TA PO; +ROSU20TA PO; -TRAM50TA2 PO; +ZOLP5TAB8 PO
[2018-06-16] MEDS ORDERED: Z GUARD REMEDY PASTE 57 GM TUBE TOP PRN (17:45)
[2018-06-16] MEDS ORDERED: ONDANSETRON 4 MG/2 ML VIAL IV PRN (17:45)
[2018-06-16] MEDS ORDERED: HYDROCODONE/APAP 5-325MG TABLET PO PRN (17:45)
[2018-06-16] MEDS ORDERED: ZOLPIDEM 5 MG TABLET PO PRN (17:45)
[2018-06-16] MEDS ORDERED: ACETAMINOPHEN 325 MG TABLET PO PRN (17:45)
[2018-06-16] MEDS ORDERED: MAGNESIUM HYDROXIDE 30 ML LIQUID UDC PO PRN ×2 (17:45→18:45)
[2018-06-16 18:28] VITALS: BP 142/79
[2018-06-16] MEDS ORDERED: THERAHONEY GEL 1.5 OZ TUBE TOP PRN (18:45)
--- NOTE | 2018-06-16 19:30 | NUR ---
Received patient in bed. Son at bed side. Patient is alert and verbally responsive. Able to make needs known. Denies any pain and discomfort at this time. No acute distress. No SOB. On 2L via NC. IV site on left hand. No s/s of infiltration. Kept clean and dry. All needs attended to promptly. Call light within reach. Will continue to monitor.
[2018-06-16] MEDS: ALBUTEROL SULFATE 2.5 MG/3 ML NEBU NEB PRN ×2 (19:51→22:36)
[2018-06-16] MEDS: DOCUSATE SODIUM 100 MG CAPSULE PO SCH (20:37)
[2018-06-16] MEDS: ATORVASTATIN 10 MG TABLET PO SCH (20:37)
[2018-06-16] MEDS ORDERED: DOCUSATE SODIUM 100 MG CAPSULE PO SCH (21:00)
[2018-06-16 22:04] VITALS: BP 136/69
[2018-06-17] MEDS: ALBUTEROL SULFATE 2.5 MG/3 ML NEBU NEB PRN ×2 (02:37→07:37)
[2018-06-17] MEDS: PANTOPRAZOLE SODIUM 40 MG TABLET.DR PO SCH (06:28)
[2018-06-17 07:27] LABS: BASOPHILS # (AUTO) 0.1 K/uL (0.0-8.0); BASOPHILS % (AUTO) 0.8 % (0.0-2.0); EOSINOPHILS # (AUTO) 0.2 K/uL (0.0-0.7); EOSINOPHILS % (AUTO) 2.5 % (0.0-7.0); HEMATOCRIT 44.2 % (31.2-41.9); HEMOGLOBIN 15.1 g/dL (10.9-14.3); LYMPHOCYTES # (AUTO) 1.4 K/uL (20.0-40.0); LYMPHOCYTES % (AUTO) 16.9 % (20.5-51.5); MEAN CORPUSCULAR HEMOGLOBIN 31.4 uug (24.7-32.8); MEAN CORPUSCULAR HGB CONC 34 g/dL (32.3-35.6); MEAN CORPUSCULAR VOLUME 91.8 fL (75.5-95.3); MONOCYTES # (AUTO) 0.6 K/uL (2.0-10.0); MONOCYTES % (AUTO) 7.9 % (0.0-11.0); NEUTROPHILS # (AUTO) 5.9 K/uL (1.8-8.9); NEUTROPHILS % (AUTO) 71.9 % (38.5-71.5); PLATELET COUNT (AUTO) 598 K/uL (179-408); RED BLOOD CELL COUNT(AUTO) 4.81 MIL/uL (3.63-4.92); WHITE BLOOD COUNT (AUTO) 8.2 K/uL (3.8-11.8)
--- NOTE | 2018-06-17 07:39 | NUR ---
Patient slept comfortably throughout the night. No c/o pain and discomfort. No acute distress. Kept clean and dry. All needs attended to promptly. Call light within reach. Will continue to monitor.
[2018-06-17 07:47] LABS: CARBON DIOXIDE 30 mmol/L (21-32); CHLORIDE 104 mmol/L (98-107); CHOLESTEROL 93 mg/dL (<200); CREATININE 0.7 mg/dL (0.6-1.3); GLUCOSE 127 mg/dL (74-106); HDL CHOLESTEROL 64 mg/dL (40-60); MAGNESIUM 2.1 mg/dL (1.8-2.4); PHOSPHOROUS 3.3 mg/dL (2.5-4.9); POTASSIUM 5.1 mmol/L (3.5-5.1); TRIGLYCERIDES 28 MG/DL (30-150); UREA NITROGEN, BLOOD 16 mg/dL (7-18)
[2018-06-17] MEDS: CHOLECALCIFEROL 1,000 UNIT TABLET PO SCH (08:59)
[2018-06-17] MEDS: HYDROCODONE/APAP 5-325MG TABLET PO PRN ×2 (08:59→20:40)
[2018-06-17] MEDS: METFORMIN HCL 500 MG TABLET PO SCH ×2 (08:59→17:54)
[2018-06-17] MEDS: DULOXETINE 20 MG CAPSULE.DR PO SCH (09:00)
[2018-06-17] MEDS: CITALOPRAM 10 MG TABLET PO SCH (09:00)
[2018-06-17] MEDS: DONEPEZIL 5 MG TABLET PO SCH (09:00)
[2018-06-17] MEDS: FOLIC ACID 1 MG TABLET PO SCH (09:00)
[2018-06-17] MEDS: LIDOCAINE 5% PATCH TD SCH (09:01)
[2018-06-17] MEDS: predniSONE 5 MG TABLET PO SCH (09:01)
[2018-06-17] MEDS: MYRBETRIQ 25 MG PO SCH (17:54)
[2018-06-17 19:30] VITALS: BP 117/62
[2018-06-17] MEDS: ATORVASTATIN 10 MG TABLET PO SCH (20:40)
[2018-06-17] MEDS: DOCUSATE SODIUM 100 MG CAPSULE PO SCH (20:41)
[2018-06-18 04:00] VITALS: BP 147/73
[2018-06-18] MEDS: PANTOPRAZOLE SODIUM 40 MG TABLET.DR PO SCH (06:15)
--- NOTE | 2018-06-18 07:12 | NUR ---
Patient received in bed, AAO X3. Able to make needs known. Sinhala speaking. No sign of acute distress or SOB noted. On O2 2 L/min via N/C. No complain of pain V/S checked, brief assessment done. Medication given as ordered. Safety measures maintained. Bed brake and alarm on, side rails upx2. Call light and personal belonging within reach. Continue to monitor and will endorse to the day shift nurse.
[2018-06-18] MEDS: METFORMIN HCL 500 MG TABLET PO SCH ×2 (08:59→17:26)
[2018-06-18] MEDS: FOLIC ACID 1 MG TABLET PO SCH (08:59)
[2018-06-18] MEDS: CHOLECALCIFEROL 1,000 UNIT TABLET PO SCH (09:00)
[2018-06-18] MEDS: HYDROCODONE/APAP 5-325MG TABLET PO PRN ×2 (09:00→17:27)
[2018-06-18] MEDS: DONEPEZIL 5 MG TABLET PO SCH (09:01)
[2018-06-18] MEDS: predniSONE 5 MG TABLET PO SCH (09:01)
[2018-06-18] MEDS: CITALOPRAM 10 MG TABLET PO SCH (09:01)
[2018-06-18] MEDS: DULOXETINE 20 MG CAPSULE.DR PO SCH (09:01)
[2018-06-18] MEDS: MYRBETRIQ 25 MG PO SCH (09:01)
[2018-06-18] MEDS: LIDOCAINE 5% PATCH TD SCH (09:01)
[2018-06-18 16:10] VITALS: BP 109/64
--- NOTE | 2018-06-18 19:15 | NUR ---
Received patient sitting up in wheelchair. Alert and verbally responsive. Able to make needs known. Denies any pain and discomfort at this time. No acute distress. No SOB. Kept clean and dry. All needs attended to promptly. Call light within reach. Will continue to monitor.
[2018-06-18 19:48] VITALS: BP 125/74
[2018-06-18] MEDS: ATORVASTATIN 10 MG TABLET PO SCH (20:23)
[2018-06-18] MEDS: ACETAMINOPHEN 325 MG TABLET PO PRN (20:23)
[2018-06-18] MEDS: DOCUSATE SODIUM 100 MG CAPSULE PO SCH (20:23)
[2018-06-19 05:00] VITALS: BP 128/63
[2018-06-19] MEDS: PANTOPRAZOLE SODIUM 40 MG TABLET.DR PO SCH (06:30)
--- NOTE | 2018-06-19 07:11 | NUR ---
Patient slept comfortably throughout the night. No c/o pain and discomfort. No acute distress. No SOB. Kept clean and dry. Assisted to bathroom as needed. All needs attended to promptly. Calll ight within reach. Will continue to monitor.
--- NOTE | 2018-06-19 07:43 | NUR ---
Patient noted resting in bed with eyes closed, no facial cues of pain noted, no signs of distress noted, call light in reach, bed locked and in lowest position, x 2 bed rails, all needs met at this time
[2018-06-19] MEDS: DULOXETINE 20 MG CAPSULE.DR PO SCH (08:10)
[2018-06-19] MEDS: DONEPEZIL 5 MG TABLET PO SCH (08:10)
[2018-06-19] MEDS: CHOLECALCIFEROL 1,000 UNIT TABLET PO SCH (08:11)
[2018-06-19] MEDS: CITALOPRAM 10 MG TABLET PO SCH (08:11)
[2018-06-19] MEDS: MYRBETRIQ 25 MG PO SCH (08:11)
[2018-06-19] MEDS: predniSONE 5 MG TABLET PO SCH (08:11)
[2018-06-19] MEDS: LIDOCAINE 5% PATCH TD SCH (08:12)
[2018-06-19] MEDS: METFORMIN HCL 500 MG TABLET PO SCH ×2 (08:12→18:10)
[2018-06-19] MEDS: FOLIC ACID 1 MG TABLET PO SCH (08:12)
[2018-06-19 10:12] VITALS: BP 135/74
[2018-06-19] MEDS: ACETAMINOPHEN 325 MG TABLET PO PRN (12:06)
[2018-06-19 15:50] VITALS: BP 121/61
--- NOTE | 2018-06-19 19:10 | NUR ---
Patient awake during initial rounds. Family at bedside. Patient complaints of tolerable pain of left rib at this time. Instructed patient/family not to wait till reach it peak and verbalized understanding. Will monitor.
[2018-06-19] MEDS: HYDROCODONE/APAP 5-325MG TABLET PO PRN (19:58)
[2018-06-19 20:00] VITALS: BP 116/63
--- NOTE | 2018-06-19 20:00 | NUR ---
Medicated for left rib pain in scale of 8/10. Will monitor.
--- NOTE | 2018-06-19 20:10 | NUR ---
Complaining of productive cough, family requesting breathing treatment. Notified RT around.
[2018-06-19] MEDS: ALBUTEROL SULFATE 2.5 MG/3 ML NEBU NEB PRN (20:20)
--- NOTE | 2018-06-19 20:25 | NUR ---
RT at bedside administering breathing treatment as needed and ordered. Will monitor.
[2018-06-19] MEDS: ATORVASTATIN 10 MG TABLET PO SCH (20:46)
[2018-06-19] MEDS: DOCUSATE SODIUM 100 MG CAPSULE PO SCH (20:46)
[2018-06-19 22:18] VITALS: BP 116/63
[2018-06-20 04:00] VITALS: BP 93/66
[2018-06-20] MEDS: PANTOPRAZOLE SODIUM 40 MG TABLET.DR PO SCH (06:17)
--- NOTE | 2018-06-20 06:42 | NUR ---
Shift End Report: VS stable. No further complaint presented throughout the night. No s/s of respiratory distress. No fall/injury. All needs attended and met. No significant event reported > Continue current rehab plan of care.
[2018-06-20] MEDS: FOLIC ACID 1 MG TABLET PO SCH (08:46)
[2018-06-20] MEDS: METFORMIN HCL 500 MG TABLET PO SCH ×2 (08:46→16:00)
[2018-06-20] MEDS: DULOXETINE 20 MG CAPSULE.DR PO SCH (08:47)
[2018-06-20] MEDS: CHOLECALCIFEROL 1,000 UNIT TABLET PO SCH (08:47)
[2018-06-20] MEDS: predniSONE 5 MG TABLET PO SCH (08:47)
[2018-06-20] MEDS: CITALOPRAM 10 MG TABLET PO SCH (08:47)
[2018-06-20] MEDS: MYRBETRIQ 25 MG PO SCH (08:47)
[2018-06-20] MEDS: DONEPEZIL 5 MG TABLET PO SCH (08:47)
[2018-06-20] MEDS: LIDOCAINE 5% PATCH TD SCH (08:48)
--- NOTE | 2018-06-20 10:00 | NUR ---
Received patient awake in bed. increase respiration noted during rounds R-23. SPO2 92% no complaint of pain/discomfort. not in distress. MD King notified. ordered STAT chest x-ray. will continue monitor
[2018-06-20] MEDS: IBUPROFEN 200 MG TABLET PO PRN (14:13)
[2018-06-20 16:02] VITALS: BP 139/67
[2018-06-20 20:00] VITALS: BP 122/65
--- NOTE | 2018-06-20 20:03 | NUR ---
Patient received in bed, AAO X3. Able to make needs known. Malay speaking. No sign of acute distress or SOB noted. Her son was at bed side. On O2 2 L/min via N/C. No complain of pain V/S checked, brief assessment done. Safety measures maintained. Bed brake and alarm on, side rails upx2. Call light and personal belonging within reach. Continue to monitor.
[2018-06-20] MEDS: ATORVASTATIN 10 MG TABLET PO SCH (20:05)
[2018-06-20] MEDS: DOCUSATE SODIUM 100 MG CAPSULE PO SCH (20:05)
[2018-06-20] MEDS: HYDROCODONE/APAP 5-325MG TABLET PO PRN (20:06)
[2018-06-21 04:00] VITALS: BP 150/70
[2018-06-21] MEDS: PANTOPRAZOLE SODIUM 40 MG TABLET.DR PO SCH (06:15)
[2018-06-21 07:58] LABS: BASOPHILS # (AUTO) 0.1 K/uL (0.0-8.0); EOSINOPHILS # (AUTO) 0.2 K/uL (0.0-0.7); HEMOGLOBIN 14.2 g/dL (10.9-14.3); MONOCYTES # (AUTO) 0.7 K/uL (2.0-10.0)
[2018-06-21 08:00] LABS: ALANINE AMINOTRANSFERASE 33 U/L (14-59); ALKALINE PHOSPHATASE 51 U/L (50-136); ASPARTATE AMINOTRANSFERASE 26 U/L (15-37); BILIRUBIN,TOTAL 0.7 mg/dL (0.2-1.0); CARBON DIOXIDE 27 mmol/L (21-32); CHLORIDE 104 mmol/L (98-107); CREATININE 0.6 mg/dL (0.6-1.3); GLUCOSE 111 mg/dL (74-106); MAGNESIUM 1.8 mg/dL (1.8-2.4); PHOSPHOROUS 2.9 mg/dL (2.5-4.9); POTASSIUM 4.1 mmol/L (3.5-5.1); TOTAL PROTEIN, SERUM 6.1 g/dL (6.4-8.2); UREA NITROGEN, BLOOD 15 mg/dL (7-18)
[2018-06-21 08:14] LABS: BASOPHILS % (AUTO) 0.8 % (0.0-2.0); EOSINOPHILS % (AUTO) 2.3 % (0.0-7.0); HEMATOCRIT 42.3 % (31.2-41.9); LYMPHOCYTES # (AUTO) 1.8 K/uL (20.0-40.0); LYMPHOCYTES % (AUTO) 21.7 % (20.5-51.5); MEAN CORPUSCULAR HEMOGLOBIN 30.7 uug (24.7-32.8); MEAN CORPUSCULAR HGB CONC 34 g/dL (32.3-35.6); MEAN CORPUSCULAR VOLUME 91.2 fL (75.5-95.3); MONOCYTES % (AUTO) 8.9 % (0.0-11.0); NEUTROPHILS # (AUTO) 5.4 K/uL (1.8-8.9); NEUTROPHILS % (AUTO) 66.3 % (38.5-71.5); RED BLOOD CELL COUNT(AUTO) 4.64 MIL/uL (3.63-4.92); WHITE BLOOD COUNT (AUTO) 8.1 K/uL (3.8-11.8)
[2018-06-21 08:15] LABS: PLATELET COUNT (AUTO) 410 K/uL (179-408)
[2018-06-21] MEDS: LIDOCAINE 5% PATCH TD SCH (08:46)
[2018-06-21] MEDS: METFORMIN HCL 500 MG TABLET PO SCH ×2 (08:46→16:51)
[2018-06-21] MEDS: FOLIC ACID 1 MG TABLET PO SCH (08:46)
[2018-06-21] MEDS: IBUPROFEN 200 MG TABLET PO PRN (08:46)
[2018-06-21] MEDS: CHOLECALCIFEROL 1,000 UNIT TABLET PO SCH (08:46)
[2018-06-21] MEDS: predniSONE 5 MG TABLET PO SCH (08:47)
[2018-06-21] MEDS: MYRBETRIQ 25 MG PO SCH (08:47)
[2018-06-21] MEDS: DONEPEZIL 5 MG TABLET PO SCH (08:47)
[2018-06-21] MEDS: CITALOPRAM 10 MG TABLET PO SCH (08:47)
[2018-06-21] MEDS: DULOXETINE 20 MG CAPSULE.DR PO SCH (08:47)
[2018-06-21] MEDS ORDERED: IBUPROFEN 200 MG TABLET PO PRN (11:00)
[2018-06-21] MEDS: HYDROCODONE/APAP 5-325MG TABLET PO PRN ×2 (11:02→16:52)
[2018-06-21] MEDS: ALBUTEROL SULFATE 2.5 MG/3 ML NEBU NEB PRN (11:10)
[2018-06-21] MEDS ORDERED: IBUPROFEN 400 MG TABLET PO PRN (11:15)
--- NOTE | 2018-06-21 16:03 | NUR ---
Received patient awake in stable condition. Continue on oxygen via nasal cannula at 2 LPM. Ongoing breathing treatment if needed. not in distress. Continue pain management with good effect. Mortrin change from 200mg BID to 400mg every 8 hours. will continue monitor
[2018-06-21 16:55] VITALS: BP 130/74
[2018-06-21] MEDS: ALPRAZOLAM 0.5 MG TABLET PO PRN (18:48)
--- NOTE | 2018-06-21 19:35 | NUR ---
Received pt in bed, AAO x 3 with son at bedside. No acute distress noted. Verbally responsive and able to make needs known. Denies pain or discomfort at this time. All safety measures and fall precautions maintained. Call light and all personal belongings within reach. Will continue to monitor.
[2018-06-21 20:00] VITALS: BP 130/70
[2018-06-21] MEDS: DOCUSATE SODIUM 100 MG CAPSULE PO SCH (20:26)
[2018-06-21] MEDS: ATORVASTATIN 10 MG TABLET PO SCH (20:26)
--- NOTE | 2018-06-21 23:48 | NUR ---
INTERDISCIPLINARY TEAM CONFERENCE
[2018-06-22 04:00] VITALS: BP 136/67
[2018-06-22] MEDS: PANTOPRAZOLE SODIUM 40 MG TABLET.DR PO SCH (07:20)
[2018-06-22] MEDS: METFORMIN HCL 500 MG TABLET PO SCH ×2 (08:40→16:29)
[2018-06-22] MEDS: DULOXETINE 20 MG CAPSULE.DR PO SCH (08:40)
[2018-06-22] MEDS: DONEPEZIL 5 MG TABLET PO SCH (08:40)
[2018-06-22] MEDS: CHOLECALCIFEROL 1,000 UNIT TABLET PO SCH (08:40)
[2018-06-22] MEDS: FOLIC ACID 1 MG TABLET PO SCH (08:40)
[2018-06-22] MEDS: predniSONE 5 MG TABLET PO SCH (08:40)
[2018-06-22] MEDS: CITALOPRAM 10 MG TABLET PO SCH (08:41)
[2018-06-22] MEDS: MYRBETRIQ 25 MG PO SCH (08:42)
[2018-06-22] MEDS: LIDOCAINE 5% PATCH TD SCH (08:42)
--- NOTE | 2018-06-22 10:04 | NUR ---
Received patient awake in stable condition. not in distress. Continue on breathing treatment as needed. Continue on pain management with good effect. Continue therapy for ambulation and unsteady gait. will continue monitor
[2018-06-22] MEDS: ALPRAZOLAM 0.5 MG TABLET PO PRN (16:29)
--- NOTE | 2018-06-22 19:10 | NUR ---
Received patient awake during initial rounds. Family at bedside. Denies any pain/discomforts. Safety measures and fall precaution maintained. Continue care as planned.
[2018-06-22] MEDS: ATORVASTATIN 10 MG TABLET PO SCH (20:44)
[2018-06-22] MEDS: DOCUSATE SODIUM 100 MG CAPSULE PO SCH (20:44)
[2018-06-22 21:19] VITALS: BP 122/77
[2018-06-22] MEDS: ZOLPIDEM 5 MG TABLET PO PRN (21:39)
--- NOTE | 2018-06-23 06:58 | NUR ---
Shift End Report:Slept well. VS stable. No complaint presented all night. All needs attended and met. No fall/injury. Continue current rehab plan of care.
[2018-06-23] MEDS: PANTOPRAZOLE SODIUM 40 MG TABLET.DR PO SCH (07:09)
[2018-06-23 07:30] VITALS: BP 126/75
[2018-06-23 08:00] VITALS: BP 129/59
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
[2018-06-23] MEDS: CHOLECALCIFEROL 1,000 UNIT TABLET PO SCH (09:21)
[2018-06-23] MEDS: LIDOCAINE 5% PATCH TD SCH (09:21)
[2018-06-23] MEDS: METFORMIN HCL 500 MG TABLET PO SCH ×2 (09:21→17:17)
[2018-06-23] MEDS: FOLIC ACID 1 MG TABLET PO SCH (09:21)
[2018-06-23] MEDS: DULOXETINE 20 MG CAPSULE.DR PO SCH (09:21)
[2018-06-23] MEDS: DONEPEZIL 5 MG TABLET PO SCH (09:22)
[2018-06-23] MEDS: predniSONE 5 MG TABLET PO SCH (09:22)
[2018-06-23] MEDS: CITALOPRAM 10 MG TABLET PO SCH (09:22)
[2018-06-23] MEDS: MYRBETRIQ 25 MG PO SCH (09:22)
[2018-06-23] MEDS: HYDROCODONE/APAP 5-325MG TABLET PO PRN ×2 (11:26→21:06)
[2018-06-23] MEDS: ALPRAZOLAM 0.5 MG TABLET PO PRN (15:39)
[2018-06-23 16:00] VITALS: BP 127/69
--- NOTE | 2018-06-23 19:13 | NUR ---
Xanax given for agitation
[2018-06-23 20:00] VITALS: BP 130/70
--- NOTE | 2018-06-23 20:00 | NUR ---
Patient received in bed, AAO X3. Able to make needs known. English speaking. No sign of acute distress or SOB noted. Her son was at bed side. On O2 2 L/min via N/C. Complain of pain at left side of her back, rating 7 out of 10 in numeric scale. V/S checked, brief assessment done. Safety measures maintained. Bed brake and alarm on, side rails upx2. Call light and personal belonging within reach. Continue to monitor.
[2018-06-23] MEDS: ATORVASTATIN 10 MG TABLET PO SCH (21:06)
[2018-06-23] MEDS: DOCUSATE SODIUM 100 MG CAPSULE PO SCH (21:06)
[2018-06-24 04:00] VITALS: BP 136/87
--- NOTE | 2018-06-24 05:52 | NUR ---
End of the shift note Patient was stable throughout the shift. No sign of acute distress or SOB noted. On O2 2 L/min via N/C. pain assess and reassess after pain medication. Lidocaine patch removed. Medication given as ordered. Safety measures maintained. Bed brake and alarm on, side rails upx2. Call light and personal belonging within reach. Continue to monitor and will endorse to the day shift nurse.
[2018-06-24] MEDS: PANTOPRAZOLE SODIUM 40 MG TABLET.DR PO SCH (06:17)
[2018-06-24 07:13] LABS: BASOPHILS # (AUTO) 0.1 K/uL (0.0-8.0); BASOPHILS % (AUTO) 0.7 % (0.0-2.0); EOSINOPHILS # (AUTO) 0.3 K/uL (0.0-0.7); EOSINOPHILS % (AUTO) 3.8 % (0.0-7.0); HEMATOCRIT 40.8 % (31.2-41.9); HEMOGLOBIN 14.1 g/dL (10.9-14.3); LYMPHOCYTES # (AUTO) 2.3 K/uL (20.0-40.0); LYMPHOCYTES % (AUTO) 25.6 % (20.5-51.5); MEAN CORPUSCULAR HEMOGLOBIN 31.1 uug (24.7-32.8); MEAN CORPUSCULAR HGB CONC 35 g/dL (32.3-35.6); MONOCYTES # (AUTO) 0.7 K/uL (2.0-10.0); MONOCYTES % (AUTO) 8.4 % (0.0-11.0); NEUTROPHILS # (AUTO) 5.5 K/uL (1.8-8.9); NEUTROPHILS % (AUTO) 61.5 % (38.5-71.5); PLATELET COUNT (AUTO) 432 K/uL (179-408); RED BLOOD CELL COUNT(AUTO) 4.53 MIL/uL (3.63-4.92)
[2018-06-24 07:22] LABS: CARBON DIOXIDE 28 mmol/L (21-32); CHLORIDE 105 mmol/L (98-107); CREATININE 0.7 mg/dL (0.6-1.3); GLUCOSE 106 mg/dL (74-106); MAGNESIUM 1.6 mg/dL (1.8-2.4); PHOSPHOROUS 3.4 mg/dL (2.5-4.9); POTASSIUM 4.3 mmol/L (3.5-5.1); UREA NITROGEN, BLOOD 21 mg/dL (7-18)
[2018-06-24 08:00] VITALS: BP 115/67
[2018-06-24] MEDS: CHOLECALCIFEROL 1,000 UNIT TABLET PO SCH (09:33)
[2018-06-24] MEDS: FOLIC ACID 1 MG TABLET PO SCH (09:33)
[2018-06-24] MEDS: METFORMIN HCL 500 MG TABLET PO SCH ×2 (09:33→17:17)
[2018-06-24] MEDS: MYRBETRIQ 25 MG PO SCH (09:34)
[2018-06-24] MEDS: DONEPEZIL 5 MG TABLET PO SCH (09:34)
[2018-06-24] MEDS: CITALOPRAM 10 MG TABLET PO SCH (09:34)
[2018-06-24] MEDS: DULOXETINE 20 MG CAPSULE.DR PO SCH (09:34)
[2018-06-24] MEDS: predniSONE 5 MG TABLET PO SCH (09:35)
[2018-06-24] MEDS: LIDOCAINE 5% PATCH TD SCH (09:35)
[2018-06-24] MEDS: MAGNESIUM OXIDE 400 MG TABLET PO SCH ×2 (09:42→17:18)
[2018-06-24] MEDS: HYDROCODONE/APAP 5-325MG TABLET PO PRN (11:25)
--- NOTE | 2018-06-24 13:40 | NUR ---
INTERDISCIPLINARY TEAM CONFERENCE
[2018-06-24 16:42] VITALS: BP 138/63
--- NOTE | 2018-06-24 18:46 | NUR ---
PATIENT AMBULATED WITH PHYSICAL THERAPIST TODAY. C/O PAIN X1 OF THE LEFT RIB AREA SCALE 9/10, PRN MED NORCO 1 TAB. PO GIVEN WITH GOOD EFFECT. NO MORE COMPLAINT UNTIL THIS MOMENT. FAMILY VISITED AND REMAIN AT THE BEDSIDE UNTIL THIS TIME. HAD 1 MEDIUM BM SOFT. ATE MEALS WITH GOOD APPETITE.STARTED ON MAGNESIUM OXIDE PO : MAG LEVEL =1.6.
[2018-06-24 19:30] VITALS: BP 129/70
[2018-06-24] MEDS: DOCUSATE SODIUM 100 MG CAPSULE PO SCH (21:15)
[2018-06-24] MEDS: ATORVASTATIN 10 MG TABLET PO SCH (21:15)
[2018-06-24] MEDS: ZOLPIDEM 5 MG TABLET PO PRN (21:16)
[2018-06-25] MEDS: QUETIAPINE FUMARATE 25 MG TABLET PO PRN (01:56)
[2018-06-25] MEDS: HYDROCODONE/APAP 5-325MG TABLET PO PRN ×3 (02:28→23:46)
[2018-06-25 04:00] VITALS: BP 123/70
[2018-06-25] MEDS: PANTOPRAZOLE SODIUM 40 MG TABLET.DR PO SCH (06:54)
[2018-06-25] MEDS: LIDOCAINE 5% PATCH TD SCH (09:38)
[2018-06-25] MEDS: DONEPEZIL 5 MG TABLET PO SCH (09:41)
[2018-06-25] MEDS: MAGNESIUM OXIDE 400 MG TABLET PO SCH ×2 (09:41→16:45)
[2018-06-25] MEDS: FOLIC ACID 1 MG TABLET PO SCH (09:41)
[2018-06-25] MEDS: METFORMIN HCL 500 MG TABLET PO SCH ×2 (09:41→16:44)
[2018-06-25] MEDS: CITALOPRAM 10 MG TABLET PO SCH (09:41)
[2018-06-25] MEDS: DULOXETINE 20 MG CAPSULE.DR PO SCH (09:41)
[2018-06-25] MEDS: predniSONE 5 MG TABLET PO SCH (09:42)
[2018-06-25] MEDS: MYRBETRIQ 25 MG PO SCH (09:42)
[2018-06-25] MEDS: CHOLECALCIFEROL 1,000 UNIT TABLET PO SCH (09:43)
[2018-06-25 15:36] VITALS: BP 123/65
[2018-06-25] MEDS: DOCUSATE SODIUM 100 MG CAPSULE PO SCH (20:14)
[2018-06-25] MEDS: ATORVASTATIN 10 MG TABLET PO SCH (20:14)
[2018-06-25] MEDS: ALPRAZOLAM 0.5 MG TABLET PO PRN (20:14)
[2018-06-25 20:57] VITALS: BP 118/58
--- NOTE | 2018-06-25 22:06 | NUR ---
Received pt resting in bed. Cameroonian speaking. Family at bedside. On 2L O2 via NC. No acute distress noted. No c/o pain or discomfort. Meds given as ordered. Safety measures maintained. Call light and personal belongings within reach. Will continue to monitor.
[2018-06-26 01:00] VITALS: BP 120/69
[2018-06-26] MEDS: QUETIAPINE FUMARATE 25 MG TABLET PO PRN (01:07)
[2018-06-26] MEDS: PANTOPRAZOLE SODIUM 40 MG TABLET.DR PO SCH (06:01)
[2018-06-26 06:36] LABS: CARBON DIOXIDE 28 mmol/L (21-32); CHLORIDE 104 mmol/L (98-107); CREATININE 0.7 mg/dL (0.6-1.3); GLUCOSE 130 mg/dL (74-106); MAGNESIUM 1.8 mg/dL (1.8-2.4); POTASSIUM 4.1 mmol/L (3.5-5.1); UREA NITROGEN, BLOOD 17 mg/dL (7-18)
[2018-06-26 06:39] LABS: BASOPHILS # (AUTO) 0.1 K/uL (0.0-8.0); BASOPHILS % (AUTO) 0.6 % (0.0-2.0); EOSINOPHILS # (AUTO) 0.3 K/uL (0.0-0.7); EOSINOPHILS % (AUTO) 3.2 % (0.0-7.0); HEMATOCRIT 39.3 % (31.2-41.9); HEMOGLOBIN 13.7 g/dL (10.9-14.3); LYMPHOCYTES # (AUTO) 2.1 K/uL (20.0-40.0); LYMPHOCYTES % (AUTO) 22.9 % (20.5-51.5); MEAN CORPUSCULAR HEMOGLOBIN 30.9 uug (24.7-32.8); MEAN CORPUSCULAR HGB CONC 35 g/dL (32.3-35.6); MEAN CORPUSCULAR VOLUME 88.8 fL (75.5-95.3); MONOCYTES # (AUTO) 0.7 K/uL (2.0-10.0); MONOCYTES % (AUTO) 7.5 % (0.0-11.0); NEUTROPHILS # (AUTO) 6.1 K/uL (1.8-8.9); NEUTROPHILS % (AUTO) 65.8 % (38.5-71.5); PLATELET COUNT (AUTO) 413 K/uL (179-408); RED BLOOD CELL COUNT(AUTO) 4.43 MIL/uL (3.63-4.92); WHITE BLOOD COUNT (AUTO) 9.3 K/uL (3.8-11.8)
[2018-06-26 06:49] VITALS: BP 127/67
[2018-06-26] MEDS: METFORMIN HCL 500 MG TABLET PO SCH ×2 (08:24→17:57)
[2018-06-26] MEDS: DULOXETINE 20 MG CAPSULE.DR PO SCH (08:25)
[2018-06-26] MEDS: predniSONE 5 MG TABLET PO SCH (08:25)
[2018-06-26] MEDS: FOLIC ACID 1 MG TABLET PO SCH (08:25)
[2018-06-26] MEDS: CHOLECALCIFEROL 1,000 UNIT TABLET PO SCH (08:25)
[2018-06-26] MEDS: DONEPEZIL 5 MG TABLET PO SCH (08:25)
[2018-06-26] MEDS: MAGNESIUM OXIDE 400 MG TABLET PO SCH ×2 (08:25→17:57)
[2018-06-26] MEDS: CITALOPRAM 10 MG TABLET PO SCH (08:26)
[2018-06-26] MEDS: LIDOCAINE 5% PATCH TD SCH (08:26)
[2018-06-26] MEDS: MYRBETRIQ 25 MG PO SCH (08:28)
[2018-06-26 16:24] VITALS: BP 116/62
[2018-06-26] MEDS: ALPRAZOLAM 0.5 MG TABLET PO PRN (18:40)
[2018-06-26] MEDS: ATORVASTATIN 10 MG TABLET PO SCH (20:34)
[2018-06-26] MEDS: HYDROCODONE/APAP 5-325MG TABLET PO PRN (20:34)
[2018-06-26] MEDS: DOCUSATE SODIUM 100 MG CAPSULE PO SCH (20:34)
[2018-06-26 21:36] VITALS: BP 112/60
--- NOTE | 2018-06-27 00:30 | NUR ---
Received pt at the beginning of shift resting in bed and watching TV. Lao speaking. On 2L O2 via NC, tolerating well, no acute distress noted. Facial cues of pain noted, PRN pain med given. Turned and repositioned. Assisted top Addendum: 06/27/18 at 0034 by Christa Matias RN continuation.. Assisted to the bathroom, using walker. Meds given as ordered. Safety measures maintained. Call light and personal belongings within reach. Will continue to monitor.
[2018-06-27 05:54] VITALS: BP 124/60
[2018-06-27] MEDS: PANTOPRAZOLE SODIUM 40 MG TABLET.DR PO SCH (06:01)
[2018-06-27 08:00] VITALS: BP 134/65
[2018-06-27] MEDS: CHOLECALCIFEROL 1,000 UNIT TABLET PO SCH (08:55)
[2018-06-27] MEDS: FOLIC ACID 1 MG TABLET PO SCH (08:55)
[2018-06-27] MEDS: METFORMIN HCL 500 MG TABLET PO SCH ×2 (08:56→16:38)
[2018-06-27] MEDS: DONEPEZIL 5 MG TABLET PO SCH (08:56)
[2018-06-27] MEDS: DULOXETINE 20 MG CAPSULE.DR PO SCH (08:56)
[2018-06-27] MEDS: MAGNESIUM OXIDE 400 MG TABLET PO SCH ×2 (08:56→16:38)
[2018-06-27] MEDS: CITALOPRAM 10 MG TABLET PO SCH (08:56)
[2018-06-27] MEDS: LIDOCAINE 5% PATCH TD SCH (08:57)
[2018-06-27] MEDS: predniSONE 5 MG TABLET PO SCH (08:57)
[2018-06-27] MEDS: MYRBETRIQ 25 MG PO SCH (08:57)
--- NOTE | 2018-06-27 10:35 | NUR ---
Received pt. in bed lying comfortable with eyes closed. No s/sx of acute distress, no SOB or CP, on O2 @ 2 LPM via NC sat95%. No c/o pain or discomfort. All due medications administered as ordered. No new skin condition identified. Safety measures in place. Pt. on schedule for discharge today. Call light and all frequently used items in reach.
[2018-06-27 16:06] VITALS: BP 120/64
--- NOTE | 2018-06-27 18:46 | NUR ---
Discharge Note. No significant change during this shift. Pt. remain A/OX3. Denies SOB or CP, no discomfort or pain. No new skin condition noted, skin remain intact. Pt. had BM x1 and voided throughout this shift. All due medications administered and tolerated well. DME for O2 arranged by case management social worker. Portable O2 tank arrived in unit around 1814. All pt. belongings accountable for, no missing items, returned to family. Pt. teaching provided and allow teach back method. Provided list of medication and returned pt. medication to r/p. Instructed pt. to f/u with PCP as scheduled. Pt. and r/p verbalized clear understanding of discharge instructions with no further concerns. Discharge paper signed by pt. witness by son. Pt. discharged home with [facility] to provide PT/OT/RN. Safely left facility at 1820 via pvt vehicle with son, prefers to ambulate with no assistive device.
== END 2018-06-27 18:20 | disposition home health service (06) | DRG 559 ==
PROVIDERS: ADMIT Physical Medicine & Rehabilitation Pain Medicine; ATTEND Physical Medicine & Rehabilitation Pain Medicine
DX: S22.42XD Multiple fractures of ribs, left side, subsequent encounter for fracture with routine healing (principal); I21.A1 Myocardial infarction type 2; Z68.1 Body mass index [BMI] 19.9 or less, adult; S26.1 Injury of heart without hemopericardium; S27.2XXD Traumatic hemopneumothorax, subsequent encounter; W19.XXXD Unspecified fall, subsequent encounter; E11.9 Type 2 diabetes mellitus without complications; L40.50 Arthropathic psoriasis, unspecified; E78.5 Hyperlipidemia, unspecified; I50.82 Biventricular heart failure; I11.0 Hypertensive heart disease with heart failure; I69.311 Memory deficit following cerebral infarction; M06.9 Rheumatoid arthritis, unspecified; I69.328 Other speech and language deficits following cerebral infarction; F32.9 Major depressive disorder, single episode, unspecified; F01.50 Vascular dementia, unspecified severity, without behavioral disturbance, psychotic disturbance, mood disturbance, and anxiety; K80.20 Calculus of gallbladder without cholecystitis without obstruction; M46.90 Unspecified inflammatory spondylopathy, site unspecified; M85.80 Other specified disorders of bone density and structure, unspecified site; Z91.81 History of falling; K59.00 Constipation, unspecified; R90.82 White matter disease, unspecified; R26.81 Unsteadiness on feet; R63.0 Anorexia
CPT/HCPCS: 36415; 70030-TC; 71045; 71046; 83735; 84100; 85025; 92507; 92523; 94640; 94664; 97110; 97116; 97530; 97535; J7512